=== PATIENT | female | born 1985 | race Caucasian/White ===

== ENCOUNTER 2019-07-04 00:54 | Inpatient (IN) ==
[2019-07-04] MEDS ORDERED: LACTATED RINGER'S 1,000 ML IV PRN (06:03)
[2019-07-04] MEDS ORDERED: OXYTOCIN 30 UNITS/500 ML BAG IV PRN ×2 (06:03→15:15)
[2019-07-04] MEDS ORDERED: PENICILLIN G POTASSIUM 6 MU in DEXTROSE 5% 250 ML IV STA ×2 (06:03→06:07)
[2019-07-04] MEDS ORDERED: PENICILLIN G POTASSIUM 3 MU in DEXTROSE 5% 100 ML IV PRN (06:07)
[2019-07-04] MEDS: LACTATED RINGER'S 1,000 ML IV PRN ×2 (06:28→11:33)
[2019-07-04 06:32] LABS: Hematocrit (blood only) 33.1 % (37-47); Hemoglobin 11.2 g/dL (12.0-16.0); Mean Corpuscular Volume 83.8 fL (80-100); Mean Platelet Volume 9.5 fL (7.4-10.4); Platelet Count 208 K/uL (130-400); RDW Coefficient of Variation 13.2 % (11.5-14.5); RDW Standard Deviation 40.7 fL (36.4-46.3); Red Blood Count 3.95 M/uL (4.2-5.4); White Blood Count 10.37 K/uL (4.8-10.8)
[2019-07-04 06:33] LABS: Mean Corpuscular Hgb Conc 33.8 g/dL (32-36)
--- NOTE | 2019-07-04 09:49 | Obstetrical Progress Note ---
Date of Service July 04, 2019 Physical Exam Genitourinary: OB Exam Abdomen: + vertex and + irregular contractions Manual OB Exam: + cervical dilation 5 cm, + cervical effacement 60%, + station - 2 and + amniotic fluid clear OB Exam Monitor Tracing: + category I and + normal FHT variability AROM with amni-hook clear fluid Results & Data Vital Signs (Past 12 Hours) Vital Signs Temp Pulse Resp BP 07/04/19 07:59 66 114/74 07/04/19 06:55 36.8 C 16 07/04/19 06:23 71 104/73 07/04/19 01:32 36.9 C 12 07/04/19 01:20 77 124/80 07/04/19 01:16 36.9 C 18
[2019-07-04] MEDS ORDERED: fentaNYL citrate 100 MCG/2 ML VIAL ONE (11:03)
[2019-07-04] MEDS ORDERED: ePHEDrine sulfate 50 MG/ML AMP ONE (11:03)
[2019-07-04] MEDS ORDERED: BUPIVACAINE 0.25% 30 ML VIAL ONE (11:03)
[2019-07-04] MEDS ORDERED: fentaNYL 2MCG/ML ROPIV 1.25MG/ML 100 ML BAG EPI ONE (11:04)
--- NOTE | 2019-07-04 11:50 | Anesthesiology Consultation ---
Date of Service July 04, 2019 Assessment & Plan Chart Review Chart Review: Acceptable Risk for Labor Epidural Consults Requested none History Height/Weight Height: 5 ft 4 in Weight: 77.111 kg Allergies Allergy/AdvReac Type Severity Reaction Status Date / Time No Known Allergies Allergy Unknown _ Verified 01/04/09 11:08 Medications Home Medications Medication Instructions Recorded Confirmed Last Taken PNV cmb#95-ferrous fumarate-FA 1 tab PO DAILY 07/04/19 07/04/19 07/04/19 [] Active Medications Generic Name Dose Route Start Last Admin Trade Name Freq PRN Reason Stop Dose Admin Lactated Ringer's 1,000 mls @ 125 mls/hr 07/04/19 06:07 07/04/19 11:33 Lr IV 07/06/19 06:06 999 mls/hr .Q8H PRN Administration L&D Protocol Protocol Penicillin G Potassium 3 mu/ 106 mls @ 100 mls/hr 07/04/19 06:07 07/04/19 10:37 Dextrose IV 07/14/19 06:06 100 mls/hr Q4H PRN Administration Give until delivery Past Medical History Medical History Scoliosis scoliosis of the thoracic spine fixed with rods and screws extending from about level of T2-T12 Past Surgical History Surgical History History of back surgery T2-T12 fusion History of epidural anesthesia 2008, 2010 for labor: no issues with epidural placement Social History Smoking Status: Never smoker Do You Dip or Chew Tobacco: No Hx Alcohol Use: No Hx Substance Use: No substance use type: does not use Physical Exam Vital Signs Last Vital Signs Temp 36.4 C L 07/04/19 10:42 Pulse 77 07/04/19 11:49 Resp 18 07/04/19 10:42 BP 123/70 07/04/19 11:49 Pulse Ox 100 07/04/19 11:48 Testing Laboratory Results 07/04/19 06:17
[2019-07-04] MEDS ORDERED: fentaNYL 2MCG/ML ROPIV 1.25MG/ML 100 ML BAG EPI PRN (11:52)
[2019-07-04] MEDS ORDERED: NALOXONE HCL 1 MG in SODIUM CHLORIDE 0.9% 1000ML 1,000 ML IV PRN (11:52)
[2019-07-04] MEDS ORDERED: ePHEDrine sulfate 50 MG/ML AMP IV PRN (11:52)
[2019-07-04] MEDS ORDERED: NALBUPHINE HCL INJ 10 MG/ML AMP IV PRN (11:52)
[2019-07-04] MEDS ORDERED: NALOXONE HCL 0.4 MG/1 ML VIAL/CARP IV PRN (11:52)
[2019-07-04] MEDS ORDERED: DiphenhydrAMINE HCL 50 MG/ML VIAL IV PRN (11:52)
[2019-07-04] MEDS: OXYTOCIN 30 UNITS/500 ML BAG IV PRN ×2 (14:44→15:30)
--- NOTE | 2019-07-04 14:55 | Delivery Summary ---
Vaginal Delivery Summary Date of Service July 04, 2019 Vaginal Delivery Summary Delivery Note live female direct OP with intact perineum and nuchal cord x2 tight reduced at delivery. Delayed cord clamping with Apgars 8/9 weight pending. Cord blood obtained followed by spontaneous delivery of intact placenta. No tears. EBL 200 ml. Final sponge and instrument count are correct. Mom and baby stable
[2019-07-04] MEDS ORDERED: SUPERCREAM 0.870% 15 GM JAR EXT PRN (15:15)
[2019-07-04] MEDS ORDERED: HYDROCORTISONE ACETATE 25 MG SUPP PR PRN (15:15)
[2019-07-04] MEDS ORDERED: BENZOCAINE 20% AER SPR 82.5 GM CAN EXT PRN (15:15)
[2019-07-04] MEDS ORDERED: BISACODYL 10 MG SUPP PR PRN (15:15)
[2019-07-04] MEDS ORDERED: DIPHTHERIA/TETANUS/PERTUSSIS 0.5 ML SYR/VIAL IM ONE (15:15)
[2019-07-04] MEDS ORDERED: ACETAMINOPHEN 325 MG TAB PO PRN (15:15)
--- NOTE | 2019-07-04 17:36 | Anesthesia Procedure Note ---
Date of Service July 04, 2019 Anesthesia Post Epidural Note Vital Signs Vital Signs: Temp Pulse Resp BP Pulse Ox 36.8 C 69 16 106/69 100 07/04/19 13:15 07/04/19 17:20 07/04/19 15:55 07/04/19 17:20 07/04/19 14:43 Pain Intensity Bilateral Abdomen: Pain Intensity: 0 Notes Mental Status: alert / awake / arousable Nausea / Vomiting: adequately controlled Pain: adequately controlled Airway Patency, RR, SpO2: stable & adequate BP & HR: stable & adequate Hydration State: stable & adequate Neuraxial Anesthesia: was administered and sensory block resolved Anesthetic Complications: no major complications apparent and Pt Satisfied with anesthetic care Epidural: Removed without complications and With tip intact
[2019-07-04] MEDS: DOCUSATE SODIUM 100 MG CAP PO SCH (20:18)
[2019-07-04] MEDS: IBUPROFEN 600 MG TAB PO PRN (23:33)
[2019-07-05] MEDS: IBUPROFEN 600 MG TAB PO PRN ×3 (03:08→19:48)
[2019-07-05 06:46] LABS: Hematocrit (blood only) 34.3 % (37-47); Hemoglobin 11.2 g/dL (12.0-16.0); Mean Corpuscular Hgb Conc 32.7 g/dL (32-36); Mean Corpuscular Volume 84.5 fL (80-100); Mean Platelet Volume 9.6 fL (7.4-10.4); Platelet Count 191 K/uL (130-400); RDW Coefficient of Variation 13.6 % (11.5-14.5); RDW Standard Deviation 41.6 fL (36.4-46.3); Red Blood Count 4.06 M/uL (4.2-5.4); White Blood Count 10.04 K/uL (4.8-10.8)
--- NOTE | 2019-07-05 08:43 | Obstetrical Progress Note ---
Date of Service July 05, 2019 Physical Exam Constitutional: WD/WN, vitals as above comfortable abdomen soft non- tender Fundus firm no edema neg Ruma's for d/c in AM Results & Data Vital Signs (Past 12 Hours) Vital Signs Temp Pulse Resp BP Pulse Ox 07/05/19 07:20 36.6 C 74 18 99/64 L 99 07/05/19 03:05 36.7 C 74 14 106/75 100 07/04/19 23:00 36.7 C 80 16 102/69 100 Laboratory Results Laboratory Results - last 72 hr 07/04/19 07/05/19 06:17 06:13 WBC 10.37 10.04 RBC 3.95 L 4.06 L Hgb 11.2 L 11.2 L Hct 33.1 L 34.3 L MCV 83.8 84.5 MCH 28.4 27.6 MCHC 33.8 32.7 RDW Std Deviation 40.7 41.6 RDW Coeff of Lianet 13.2 13.6 Plt Count 208 191 MPV 9.5 9.6
[2019-07-05] MEDS: PRENATAL VITAMIN 1 TAB PO SCH (08:51)
[2019-07-05] MEDS: DOCUSATE SODIUM 100 MG CAP PO SCH ×2 (08:51→19:48)
[2019-07-05] MEDS: FERROUS SULFATE 325 MG TAB PO SCH (08:54)
[2019-07-05] MEDS ORDERED: NON-FORMULARY MEDICATION (Pnv Cmb#95-Ferrous Fumarate-Fa [Prenatal] 1 TAB) PO SCH (09:00)
[2019-07-05] MEDS ORDERED: BISACODYL 5 MG TABEC PO SCH (20:00)
[2019-07-06] MEDS: IBUPROFEN 600 MG TAB PO PRN ×2 (04:12)
[2019-07-06 06:43] LABS: Hematocrit (blood only) 29.3 % (37-47); Hemoglobin 9.9 g/dL (12.0-16.0)
[2019-07-06] MEDS: DOCUSATE SODIUM 100 MG CAP PO SCH (08:44)
[2019-07-06] MEDS: PRENATAL VITAMIN 1 TAB PO SCH (08:44)
[2019-07-06] MEDS: FERROUS SULFATE 325 MG TAB PO SCH (08:44)
--- NOTE | 2019-07-06 08:59 | Obstetrical Progress Note ---
Date of Service July 06, 2019 Subjective Patient is seen and examined. She feels well, no complaints. Likes to be discharged Ambulating without dizziness Voiding without difficulty Tolerating regular diet with out N&V Bleeding is minimal No fever/ chills/ CP/ SOB/ N&V/ Leg pain Breast feeding without problems Vital Signs Temp Pulse Resp BP Pulse Ox 07/06/19 07:20 36.4 C L 68 16 99/65 L 99 07/05/19 23:45 36.5 C 78 17 109/71 100 07/05/19 19:45 36.4 C L 82 16 104/70 99 07/05/19 15:30 36.6 C 67 16 104/72 07/05/19 12:30 36.7 C 88 18 96/60 L 100 Lab Results 07/04/19 07/05/19 07/06/19 Range/Units 06:17 06:13 06:26 WBC 10.37 10.04 (4.8-10.8) K/uL RBC 3.95 L 4.06 L (4.2-5.4) M/uL Hgb 11.2 L 11.2 L 9.9 L (12.0-16.0) g/dL Hct 33.1 L 34.3 L 29.3 L (37-47) % MCV 83.8 84.5 (80-100) fL MCH 28.4 27.6 (25-34) pg MCHC 33.8 32.7 (32-36) g/dL RDW Std Deviation 40.7 41.6 (36.4-46.3) fL RDW Coeff of Lianet 13.2 13.6 (11.5-14.5) % Plt Count 208 191 (130-400) K/uL MPV 9.5 9.6 (7.4-10.4) fL PE: General: Alert, orientedx3, NAD Abd: soft, NT, fundus firm, below Umbilicus Perineum intact, Lochia rubra minimal Ext; NT, no edema AP: 33 yo s/p , ppd# 2 VSS Afebrile doing well Continue routine care All questions were answered Discussed when to call D/C home , f/u in office Results & Data Vital Signs (Past 12 Hours) Vital Signs Temp Pulse Resp BP Pulse Ox 07/06/19 07:20 36.4 C L 68 16 99/65 L 99 07/05/19 23:45 36.5 C 78 17 109/71 100
== END 2019-07-06 14:39 | disposition home or self-care (01) | DRG 807 ==
LOC: OPB 00:54 → 4S1 00:56 → 4S2 17:30